=== PATIENT | female | born 1980 | race Hispanic/Latino ===

== ENCOUNTER 2017-06-27 15:44 | Emergency (ER) | payer SELFPAY ==
[2017-06-27 16:19] LABS: Bilirubin Negative (Negative); Blood, Urine Large (Negative); Clarity CLOUDY (Clear); Glucose, Urine (Dipstick) Negative (Negative); Leukocyte Negative (Negative); Nitrite Negative (Negative); Protein, Urine (Dipstick) Trace mg/dL (Neg-Trace); Specific Gravity, Urine 1.038 (1.002-1.036); pH, Urine 5.5 (5.0-9.0)
[2017-06-27 16:20] LABS: Bacteria/HPF None Seen HPF (None Seen); Hyaline Casts/LPF 7-10 HYALINE CAST LPF (0-3 Hyaline); Pathc Cast-AUWi Flag 2.03 (0-2.49); WBC/HPF 0-3 HPF (0-3)
[2017-06-27 16:37] LABS: BHCG - Serum POSITIVE (NEGATIVE); Pregs Control Background? CLEAR/WHITE (CLR/WHITE); Pregs Control Bar Appear? YES (CONTROL BAR)
[2017-06-27 16:39] LABS: #Eosinphils 0.1 thou/uL (0.0-0.7); #Lymphocytes 2.6 thou/uL (1.20-3.40); #Monocytes 0.5 thou/uL (0.11-0.59); #Neutrophils 8.2 thou/uL (1.40-6.50); %Basophils 0.3 % (0.0-1.0); %Eosinophils 1.2 % (0.0-10.0); %Lymphocytes 22.3 % (21.0-51.0); %Monocytes 4.6 % (0.0-10.0); %Neutrophils 71.6 % (42.0-75.0); Hemoglobin 12.1 g/dL (12.0-16.0); Mean Corpuscular HGB CONC 34.5 g/dL (32.0-36.0); Mean Corpuscular Hemoglobin 32.5 pg (27.0-31.0); Mean Corpuscular Volume 94.2 fl (81.0-99.0); Mean Platelet Volume 8.2 fL (7.4-10.4); Platelet Count 257 thou/uL (130-400); RBC Distribution Width 11.8 % (11.5-14.5); Red Blood Cell (RBC) Count 3.72 mill/uL (4.20-5.40); White Blood Cell (WBC) Count 11.5 thou/uL (4.8-10.8)
[2017-06-27] MEDS ORDERED: Acetaminophen/Codeine 30-300mg Tablet ONE (16:51)
[2017-06-27 16:56] LABS: ALT (SGPT) 17 U/L (8-55); AST (SGOT) 12 U/L (5-34); Albumin 3.9 g/dL (3.5-5.0); Alkaline Phosphatase 64 U/L (40-150); Anion Gap 12 mmol/L (10-20); BUN (Urea Nitrogen) 14 mg/dL (7.0-18.7); Bilirubin, Total 0.5 mg/dL (0.2-1.2); Calc. Creatinine Clearance 0 mL/min (70-130); Calcium 9.3 mg/dL (7.8-10.44); Carbon Dioxide 23 mmol/L (22-29); Chloride 105 mmol/L (98-107); Estimated GFR-MDRD 88; Globulin 3.1 g/dL (2.4-3.5); Glucose 92 mg/dL (70-105); Potassium 3.2 mmol/L (3.5-5.1); Sodium 137 mmol/L (136-145)
--- NOTE | 2017-06-27 17:49 | ULT ---
PELVIC ULTRASOUND: 06/27/17 HISTORY: Evaluate for ectopic . Pelvic pain. COMPARISON: None. TECHNIQUE: Transabdominal imaging of the pelvis is performed. Ovaries are interrogated with plascencia scale, color fl ow, and doppler imaging and spectral waveform analysis. FINDINGS: The uterus is identified measuring 11.1 x 6.3 x 7.6 cm. No myometrial masses. Within the endometrium, there is a gestational sac, yolk sac and pole. [place]-rump length is 1.99 cm, corresponding to a gestational age of 8 weeks, 4 days. There are heart tones with a rate of 175 to 178 beats per minute. No subchorionic hemorrhage. Right ovary measures 2.7 x 1.8 x 1.5 cm. Left ovary measures 2.3 x 2.2 x 2.0 cm. There is no free flu id. OVARIAN DOPPLER: Vascular flow to both ovaries. IMPRESSION: Single intrauterine gestation with heart tones. Gestational age by crown-rump length is 8 weeks , 4 days. POS: [facility]
[2017-06-27] MEDS ORDERED: Potassium Chloride 20 MEQ TAB ONE (18:00)
[2017-06-30 00:42] LABS: Chlamydia by PCR Not Detected (NotDetected); GC by PCR Not Detected (NotDetected)
== END 2017-06-27 18:44 | disposition home or self-care (01) ==
LOC: ERS 15:44
DX: O20.0 Threatened abortion (principal); O23.591 Infection of other part of genital tract in pregnancy, first trimester; N76.0 Acute vaginitis; O99.281 Endocrine, nutritional and metabolic diseases complicating pregnancy, first trimester; E87.6 Hypokalemia; Z3A.08 8 weeks gestation of pregnancy
CPT/HCPCS: 76856; 80053; 81003; 81015; 84702; 84703; 85025; 86900; 86901; 87086; 87480; 87491; 87510; 87591; 87660; 93976

== ENCOUNTER 2017-11-06 20:24 | Emergency (ER) | payer SELFPAY ==
[2017-11-06 21:36] LABS: Bilirubin Negative (Negative); Blood, Urine Small (Negative); Clarity CLOUDY (Clear); Glucose, Urine (Dipstick) Negative (Negative); Leukocyte Moderate (Negative); Nitrite Negative (Negative); Protein, Urine (Dipstick) Negative (Neg-Trace); Specific Gravity, Urine 1.013 (1.002-1.036); Urobilinogen 0.2 mg/dL (0.2-1.0)
[2017-11-06 21:38] LABS: Bacteria/HPF 1+ HPF (None Seen); Hyaline Casts/LPF 0-3 HYALINE CAST LPF (0-3 Hyaline); Pathc Cast-AUWi Flag 0.72 (0-2.49); WBC/HPF 21-50 HPF (0-3)
[2017-11-06 21:59] LABS: #Eosinphils 0.1 thou/uL (0.0-0.7); #Lymphocytes 2.4 thou/uL (1.20-3.40); #Monocytes 0.5 thou/uL (0.11-0.59); #Neutrophils 7.3 thou/uL (1.40-6.50); %Basophils 0.3 % (0.0-1.0); %Eosinophils 1.2 % (0.0-10.0); %Lymphocytes 23.3 % (21.0-51.0); %Monocytes 4.6 % (0.0-10.0); %Neutrophils 70.6 % (42.0-75.0); Hemoglobin 11.5 g/dL (12.0-16.0); Mean Corpuscular HGB CONC 35.2 g/dL (32.0-36.0); Mean Corpuscular Hemoglobin 33.8 pg (27.0-31.0); Mean Corpuscular Volume 96.1 fL (78.0-98.0); Mean Platelet Volume 8.6 fL (7.4-10.4); Platelet Count 247 thou/uL (130-400); RBC Distribution Width 12.2 % (11.5-14.5); White Blood Cell (WBC) Count 10.4 thou/uL (4.8-10.8)
[2017-11-06 22:20] LABS: ALT (SGPT) 16 U/L (8-55); AST (SGOT) 11 U/L (5-34); Albumin 3.1 g/dL (3.5-5.0); Alkaline Phosphatase 106 U/L (40-150); Anion Gap 10 mmol/L (10-20); BUN (Urea Nitrogen) 9 mg/dL (7.0-18.7); Bilirubin, Total 0.3 mg/dL (0.2-1.2); Calc. Creatinine Clearance 0 mL/min (70-130); Calcium 8.4 mg/dL (7.8-10.44); Carbon Dioxide 23 mmol/L (22-29); Chloride 106 mmol/L (98-107); Estimated GFR-MDRD Greater than 90; Globulin 3.3 g/dL (2.4-3.5); Glucose 97 mg/dL (70-105); Potassium 3.2 mmol/L (3.5-5.1); Protein, Total 6.4 g/dL (6.0-8.3); Sodium 136 mmol/L (136-145)
[2017-11-07 00:40] LABS: BHCG - Serum Negative (NEGATIVE); Pregs Control Background? CLEAR/WHITE (CLR/WHITE); Pregs Control Bar Appear? YES (CONTROL BAR)
[2017-11-07] MEDS ORDERED: Famotidine/PF 20 mg/2ml Vial ONE (02:18)
[2017-11-07] MEDS ORDERED: diphenhydrAMINE 50 MG/ML VIAL ONE (02:18)
[2017-11-07] MEDS ORDERED: Metoclopramide HCl 10 MG/2 ML VIAL ONE (02:18)
[2017-11-07] MEDS ORDERED: Nitrofurantoin Macrocrystal 50 MG CAP PO SCH (02:30)
--- NOTE | 2017-11-07 03:28 | PDOC.LDHP ---
Labor and Delivery H&P Chief complaint: other (weakness, shortness of breath) HPI: 37 y/o at 28w3d, patient of Dr. James, presented to ED for shortness of breath with cold sensation, and epigastric pain. She was evaluated in the ED for these complaints and I saw her while down there. No ctx, VB, LOF, or decreased FM. No other OB complaints. She was monitored in room 3. ROS neg for HEENT, cv, pulm, gi, gu, neuro, psych, skin, musculoskeletal or constitutional symptoms other than mentioned above. OB History Details: 3 prior LTCS Current complications: none Past Medical History: Depression Current medications: none Previous surgical history: low tranverse CS (x3) Allergies/Adverse Reactions: Allergies Allergy/AdvReac Type Severity Reaction Status Date / Time No Known Allergies Allergy Unverified 05/04/13 14:46 Social history: none - Physical Exam Vital signs reviewed and normal: yes General: NAD, resting Lungs: nonlabored breathing Abdomen: gravid Extremeties: no edema FHT: category 1 (130s, mod variability, + accels, no decels) [place] contractions every: None - Assessment 37 y/o at 28w3d with no OB complaints. Management of presenting complaints per ED physician. status reassuring with reactive NST. - Plan -: Cleared for d/c home from OB [facility]. Follow up with Dr. James as scheduled.
--- NOTE | 2017-11-07 12:34 | ULT ---
PRELIMINARY REPORT/[facility]/EMERGENTY AFTER-HOURS PROCEDURE US Abdomen Limited, Right Upper Quadrant CLINICAL HISTORY: 37 years old, female; Pain and signs and symptoms; Nausea; Abdominal pain; Localized; Right upper robin drant (ruq); TECHNIQUE: Real-time ultrasound of the right upper quadrant with image documentation. COMPARISON: No relevant prior studies available. FINDINGS: Limitations: Somewhat limited evaluation due to bowel gas. Liver: Mildly enlarged. No acute findings. No mass. No intrahepatic bile duct dilation. Gallbladder: No acute findings. No definite gallstones. Common bile duct: Unremarkable. Pancreas: Obscured by bowel gas. Right kidney: No acute findings. No stones. No solid mass. No hydronephrosis. IMPRESSION: No acute findings. Thank you for allowing us to participate in the care of your patient. Dictated and Authenticated by: Glenn Mejía MD 11/07/2017 2:18 AM Central Time ([place] & [place]) FINAL REPORT EMERGENCY AFTER HOURS STUDY ULTRASOUND ABDOMEN LIMITED: (RIGHT UPPER QUADRANT) DATE: 11/07/17. TIME: 1:37 a.m. HISTORY: A 37-year-old female with right upper quadrant abdominal pain, weakness, and nausea. FINDINGS: The gallbladder has normal wall thickness and has no evidence of gallstones or sludge. The hepatic e chogenicity is normal. The right kidney has normal echogenicity and has no hydronephrosis. The panc reas is obscured by shadowing from bowel gas. There is no biliary dilation. The common duct caliber is 5 mm. This report agrees with preliminary report by [facility]. IMPRESSION: 1) No pathology identified. 2) Pancreas not visualized. [email or web address] [] POS: [facility]
== END 2017-11-07 03:43 | disposition home or self-care (01) ==
LOC: ERS 20:24
DX: N39.0 Urinary tract infection, site not specified (principal); R10.13 Epigastric pain
CPT/HCPCS: 36415; 59025; 76705; 80053; 81003; 81015; 84703; 85025; 87077; 87086; 87186; 96365; 96375; J1200; J2765; S0028

== ENCOUNTER 2021-09-23 15:25 | Emergency (ER) | payer OTHER, SELFPAY ==
[~2021-09-23 15:25] MED LIST: Iopamidol-370 76% 500 ML 1 ML ONE
[2021-09-23] MEDS ORDERED: Ondansetron PF 4 MG/2 ML Vial ONE (15:39)
[2021-09-23] MEDS ORDERED: Morphine 4 MG/ML VIAL ONE (15:39)
[2021-09-23 15:57] LABS: #Eosinphils 0.1 thou/uL (0.0-0.7); #Lymphocytes 3.2 thou/uL (1.20-3.40); #Monocytes 0.6 thou/uL (0.11-0.59); #Neutrophils 6.6 thou/uL (1.40-6.50); %Basophils 0.4 % (0.0-1.0); %Eosinophils 1.2 % (0.0-10.0); %Lymphocytes 30.4 % (21.0-51.0); %Monocytes 5.7 % (0.0-10.0); %Neutrophils 62.3 % (42.0-75.0); Hemoglobin 12.5 g/dL (12.0-16.0); Mean Corpuscular HGB CONC 34.4 g/dL (32.0-36.0); Mean Corpuscular Hemoglobin 31.7 pg (27.0-31.0); Mean Corpuscular Volume 92.2 fL (78.0-98.0); Mean Platelet Volume 8.2 fL (7.4-10.4); Platelet Count 252 thou/uL (130-400); RBC Distribution Width 12.1 % (11.5-14.5); Red Blood Cell (RBC) Count 3.95 mill/uL (4.20-5.40); White Blood Cell (WBC) Count 10.6 thou/uL (4.8-10.8)
[2021-09-23 16:03] LABS: BHCG - Serum Negative (NEGATIVE); Pregs Control Background? CLEAR/WHITE (CLR/WHITE); Pregs Control Bar Appear? YES (CONTROL BAR)
[2021-09-23 16:37] LABS: ALT (SGPT) 24 U/L (8-55); AST (SGOT) 20 U/L (5-34); Albumin 3.9 g/dL (3.5-5.0); Alkaline Phosphatase 109 U/L (40-110); Anion Gap 15 mmol/L (10-20); BUN (Urea Nitrogen) 16 mg/dL (7.0-18.7); Bilirubin, Total 0.3 mg/dL (0.2-1.2); Calc. Creatinine Clearance 0 mL/min (70-130); Calcium 9.1 mg/dL (7.8-10.44); Carbon Dioxide 22 mmol/L (22-29); Chloride 107 mmol/L (98-107); Estimated GFR 86; Globulin 3.5 g/dL (2.4-3.5); Glucose 101 mg/dL (70-105); Potassium 3.7 mmol/L (3.5-5.1); Protein, Total 7.4 g/dL (6.0-8.3); Sodium 140 mmol/L (136-145)
[2021-09-23] MEDS ORDERED: Ketorolac Tromethamine 30 MG/ML VIAL ONE (16:58)
== END 2021-09-23 18:05 | disposition home or self-care (01) ==
LOC: ERS 15:25
DX: S09.90XA Unspecified injury of head, initial encounter (principal); S60.221A Contusion of right hand, initial encounter; S40.811A Abrasion of right upper arm, initial encounter; M54.9 Dorsalgia, unspecified; I10 Essential (primary) hypertension; E05.90 Thyrotoxicosis, unspecified without thyrotoxic crisis or storm; Z79.899 Other long term (current) drug therapy; V89.2XXA Person injured in unspecified motor-vehicle accident, traffic, initial encounter
CPT/HCPCS: 70450; 71045; 71260; 72125; 74177; 80053; 84703; 85025; 93005; 96374; 96375; J1885; J2270; J2405; Q9967

== ENCOUNTER 2022-10-25 19:56 | Emergency (ER) | payer SELFPAY ==
[2022-10-25 21:19] LABS: #Eosinphils 0.2 thou/uL (0.0-0.7); #Monocytes 0.6 thou/uL (0.11-0.59); #Neutrophils 6.5 thou/uL (1.40-6.50); %Basophils 0.2 % (0.0-1.0); %Eosinophils 1.9 % (0.0-10.0); %Lymphocytes 32.9 % (21.0-51.0); %Monocytes 5.6 % (0.0-10.0); %Neutrophils 59.1 % (42.0-75.0); Hematocrit 33.6 % (36.0-47.0); Hemoglobin 11.8 g/dL (12.0-16.0); Mean Corpuscular HGB CONC 35.1 g/dL (32.0-36.0); Mean Corpuscular Hemoglobin 32.2 pg (27.0-31.0); Mean Corpuscular Volume 91.6 fl (78.0-98.0); Mean Platelet Volume 10.9 fL (7.4-10.4); Platelet Count 270 10x3/uL (130-400); RBC Distribution Width 13.7 % (11.5-14.5); Red Blood Cell (RBC) Count 3.67 mill/uL (4.20-5.40); White Blood Cell (WBC) Count 11.1 10x3/uL (4.8-10.8)
[2022-10-25 21:45] LABS: ALT (SGPT) 22 U/L (8-55); AST (SGOT) 17 U/L (5-34); Albumin 4.1 g/dL (3.5-5.0); Alkaline Phosphatase 85 U/L (40-110); Anion Gap 13 mmol/L (10-20); BUN (Urea Nitrogen) 11 mg/dL (7.0-18.7); Bilirubin, Total 0.4 mg/dL (0.2-1.2); Calc. Creatinine Clearance 0 mL/min (70-130); Calcium 9.4 mg/dL (7.8-10.44); Carbon Dioxide 25 mmol/L (22-29); Chloride 106 mmol/L (98-107); Estimated GFR 78; Globulin 3.4 g/dL (2.4-3.5); Glucose 115 mg/dL (70-105); Potassium 3.2 mmol/L (3.5-5.1); Protein, Total 7.5 g/dL (6.0-8.3); Sodium 141 mmol/L (136-145)
[2022-10-25 22:36] LABS: SARS-CoV-2 NAA Rapid Test Not Detected (NotDetected)
[2022-10-25 23:25] LABS: Bacteria/HPF 1+ HPF (None Seen); Bilirubin Negative (Negative); Blood, Urine 2+ (Negative); CAUTI Indications for Culture Dysuria,urgency,freq; Calcium Oxalate Crystals Rare HPF (None Seen); Clarity Turbid (Clear); Glucose, Urine (Dipstick) Normal (Negative); Ketone, Urine Negative (Negative); Leukocyte Negative Leu/uL (Negative); Nitrite Negative (Negative); Protein, Urine (Dipstick) 50 mg/dL (Neg-Trace); RBC/HPF 21-50 HPF (0-3); Specific Gravity, Urine 1.033 (1.002-1.036); Urobilinogen 3 mg/dL (Less than 2); WBC/HPF 0-3 HPF (0-3)
[2022-10-25 23:27] LABS: Urine Culture Reflex No No
[2022-10-25] MEDS ORDERED: Cephalexin 250 MG CAP ONE (23:41)
== END 2022-10-26 00:48 | disposition home or self-care (01) ==
LOC: ERS 19:56
DX: N39.0 Urinary tract infection, site not specified (principal); E03.9 Hypothyroidism, unspecified; I10 Essential (primary) hypertension; Z20.822 Contact with and (suspected) exposure to COVID-19
CPT/HCPCS: 36415; 71045; 80053; 81001; 85025; 93005

== ENCOUNTER 2022-12-17 12:04 | Emergency (ER) | payer OTHER, SELFPAY ==
[2022-12-17] MEDS ORDERED: Ketorolac Tromethamine 30 MG/ML VIAL ONE (12:55)
[2022-12-17] MEDS ORDERED: Cyclobenzaprine 10 MG TAB ONE (14:51)
== END 2022-12-17 15:12 | disposition home or self-care (01) ==
LOC: ERS 12:04
DX: S13.4XXA Sprain of ligaments of cervical spine, initial encounter (principal); S83.92XA Sprain of unspecified site of left knee, initial encounter; E03.9 Hypothyroidism, unspecified; I10 Essential (primary) hypertension; V43.92XA Unspecified car occupant injured in collision with other type car in traffic accident, initial encounter; Y92.410 Unspecified street and highway as the place of occurrence of the external cause
CPT/HCPCS: 71045; 72125; 96372; J1885

== ENCOUNTER 2022-12-31 11:55 | Emergency (ER) | payer SELFPAY ==
[2022-12-31] MEDS ORDERED: diphenhydrAMINE 50 MG/ML VIAL ONE (13:29)
[2022-12-31] MEDS ORDERED: Ketorolac Tromethamine 30 MG/ML VIAL ONE ×2 (13:29→13:33)
[2022-12-31] MEDS ORDERED: Diazepam 5 MG TAB ONE (13:36)
[2022-12-31] MEDS ORDERED: Acetaminophen 500 MG TAB ONE (13:40)
[2022-12-31] MEDS ORDERED: Prochlorperazine 10 MG/2 ML VIAL ONE (13:42)
[2022-12-31] MEDS ORDERED: Dexamethasone 10 MG/ML VIAL ONE (13:50)
[2022-12-31 14:12] LABS: #Eosinphils 0.2 thou/uL (0.0-0.7); #Monocytes 0.4 thou/uL (0.11-0.59); #Neutrophils 7.1 thou/uL (1.40-6.50); %Basophils 0.2 % (0.0-1.0); %Eosinophils 1.8 % (0.0-10.0); %Lymphocytes 22.4 % (21.0-51.0); %Neutrophils 71.4 % (42.0-75.0); Hematocrit 39.1 % (36.0-47.0); Hemoglobin 13.1 g/dL (12.0-16.0); Mean Corpuscular HGB CONC 33.5 g/dL (32.0-36.0); Mean Corpuscular Hemoglobin 31.6 pg (27.0-31.0); Mean Corpuscular Volume 94.4 fl (78.0-98.0); Platelet Count 286 10x3/uL (130-400); RBC Distribution Width 12.2 % (11.5-14.5); Red Blood Cell (RBC) Count 4.14 mill/uL (4.20-5.40); White Blood Cell (WBC) Count 9.9 10x3/uL (4.8-10.8)
[2022-12-31 14:30] LABS: ALT (SGPT) 19 U/L (8-55); AST (SGOT) 15 U/L (5-34); Albumin 4.3 g/dL (3.5-5.0); Alkaline Phosphatase 95 U/L (40-110); Anion Gap 10 mmol/L (10-20); BUN (Urea Nitrogen) 11 mg/dL (7.0-18.7); Bilirubin, Total 0.2 mg/dL (0.2-1.2); Calc. Creatinine Clearance 0 mL/min (70-130); Calcium 9.1 mg/dL (7.8-10.44); Carbon Dioxide 27 mmol/L (22-29); Chloride 104 mmol/L (98-107); Estimated GFR 101; Glucose 107 mg/dL (70-105); Magnesium 2.1 mg/dL (1.6-2.6); Potassium 3.9 mmol/L (3.5-5.1); Protein, Total 7.3 g/dL (6.0-8.3); Sodium 137 mmol/L (136-145)
[2022-12-31 16:00] LABS: BHCG - Serum Negative (NEGATIVE); Pregs Control Background? CLEAR/WHITE (CLR/WHITE); Pregs Control Bar Appear? YES (CONTROL BAR)
[2022-12-31 17:03] LABS: Troponin I Less than 0.010 ng/mL (< 0.028)
== END 2022-12-31 17:36 | disposition home or self-care (01) ==
LOC: ERS 11:55
DX: R51.9 Headache, unspecified (principal); R07.9 Chest pain, unspecified; M54.2 Cervicalgia; I10 Essential (primary) hypertension; E78.5 Hyperlipidemia, unspecified; Z79.899 Other long term (current) drug therapy
CPT/HCPCS: 36415; 70450; 70498; 71045; 80053; 83735; 84484; 84703; 85025; 93005; 96374; 96375; J0780; J1100; J1200; J1885

== ENCOUNTER 2023-08-13 12:29 | Observation (INO) | payer SELFPAY ==
[2023-08-13] MEDS ORDERED: Meclizine HCl 25 MG TAB ONE (14:19)
[2023-08-13 15:22] LABS: #Basophils Less than 0.03 10x3/uL (0.0-0.2); %Basophils 0.2 % (0.0-1.0); %Lymphocytes 24.5 % (21.0-51.0); Hematocrit 38.8 % (36.0-47.0); Mean Corpuscular HGB CONC 33.5 g/dL (32.0-36.0); Mean Corpuscular Hemoglobin 32.9 pg (27.0-31.0); Mean Corpuscular Volume 98.2 fL (78.0-98.0); Mean Platelet Volume 10.9 fL (7.4-10.4); Platelet Count 278 10x3/uL (130-400); RBC Distribution Width 12.2 % (11.5-14.5); Red Blood Cell (RBC) Count 3.95 mill/uL (4.20-5.40)
[2023-08-13 15:35] LABS: BHCG - Serum Negative (NEGATIVE); Pregs Control Background? CLEAR/WHITE (CLR/WHITE); Pregs Control Bar Appear? YES (CONTROL BAR)
[2023-08-13 15:39] LABS: ALT (SGPT) 18 U/L (8-55); AST (SGOT) 14 U/L (5-34); Albumin 3.6 g/dL (3.5-5.0); Alkaline Phosphatase 84 U/L (40-110); Anion Gap 12 mmol/L (10-20); BUN (Urea Nitrogen) 13 mg/dL (7.0-18.7); Bilirubin, Total 0.7 mg/dL (0.2-1.2); Calc. Creatinine Clearance 0 mL/min (70-130); Calcium 8.9 mg/dL (7.8-10.44); Carbon Dioxide 23 mmol/L (22-29); Chloride 105 mmol/L (98-107); Estimated GFR 110; Globulin 3.4 g/dL (2.4-3.5); Glucose 88 mg/dL (70-105); Potassium 3.9 mmol/L (3.5-5.1); Sodium 136 mmol/L (136-145)
[2023-08-13] MEDS ORDERED: Ondansetron PF 4 MG/2 ML Vial IVP PRN (16:30)
[2023-08-13] MEDS ORDERED: Ondansetron ODT 4 MG TAB SL PRN (16:30)
[2023-08-13] MEDS ORDERED: Acetaminophen 325 MG TAB PO PRN (16:30)
[2023-08-13 16:53] LABS: Troponin I Less than 0.010 ng/mL (< 0.028)
[2023-08-13] MEDS ORDERED: Dexamethasone 10 MG/ML VIAL ONE (17:14)
[2023-08-13] MEDS ORDERED: Aspirin Chewable 81 MG TAB ONE (17:14)
[2023-08-13] MEDS ORDERED: hydrALAZINE 20 MG/ML VIAL SLOW IVP PRN (17:15)
[2023-08-13] MEDS ORDERED: Meclizine HCl 25 MG TAB PO PRN (17:48)
[2023-08-13 18:30] LABS: INR-International Normal Ratio 1.1
[2023-08-13 18:31] LABS: PTT 23.7 sec (22.9-36.1)
[2023-08-13 19:02] LABS: T4 8.04 ug/dL (4.87-11.72)
[2023-08-13] MEDS: Atorvastatin Calcium 40 MG TAB PO SCH (21:22)
[2023-08-13 22:09] VITALS: BMI 35.5
[2023-08-14 05:45] LABS: Cardiac Risk 3.6 (Less than 4.5)
[2023-08-14] MEDS: Enoxaparin 40 MG (0.4 mL) SYRINGE SC SCH (09:21)
[2023-08-14] MEDS: Aspirin 81 mg Enteric Coated Tablet PO SCH (09:21)
[2023-08-14 14:51] LABS: INR-International Normal Ratio 1.1; PTT 24.4 sec (22.9-36.1); Prothrombin Time 14.6 sec (12.0-14.7)
[2023-08-14 14:54] LABS: D-Dimer Test Less than 0.27 mcg/mL (0.27-0.43)
[2023-08-14 15:37] LABS: Protein C Activity 106 % (78-152)
[2023-08-14 17:24] VITALS: BP 116/60; TEMP 98.1
[2023-08-15 14:14] LABS: HEX PHOS LA Tube 1 41.2 SEC; HEX PHOS LA Tube 2 39.4 SEC; Hexagonal Phospholipid Neut 1.8 SEC (0-8.0)
[2023-08-16 13:11] LABS: Cardiolipin IgA Ab 8.6 APL-U/mL (<14 Negative); Cardiolipin IgG Ab 1.3 GPL-U/mL (<10 Negative); Cardiolipin IgM Ab 1.6 MPL-U/mL (<10 Negative); EliA APS New Method **** NEW METHOD ****
== END 2023-08-14 18:49 | disposition home or self-care (01) ==
LOC: ERS 12:29 → 2SE 16:34
PROVIDERS: ADMIT Internal Medicine; ATTEND Internal Medicine
DX: R42 Dizziness and giddiness (principal); R20.0 Anesthesia of skin; R29.90 Unspecified symptoms and signs involving the nervous system; E03.9 Hypothyroidism, unspecified; I10 Essential (primary) hypertension; Z79.899 Other long term (current) drug therapy; Z79.82 Long term (current) use of aspirin
CPT/HCPCS: 36415; 70450; 70551; 71045; 80053; 80061; 83090; 84436; 84443; 84481; 84484; 84703; 85025; 85300; 85303; 85305; 85307; 85598; 85610; 85730; 86147; 93005; 96372; 96374; G0378; J1100; J1650

== ENCOUNTER 2024-02-08 23:24 | Emergency (ER) | payer SELFPAY ==
[2024-02-09] MEDS ORDERED: HYDROcodone/Acetaminophen 5/325 mg Tablet ONE ×2 (00:47→05:03)
[2024-02-09 01:55] LABS: BHCG - Serum Negative (NEGATIVE); Pregs Control Background? CLEAR/WHITE (CLR/WHITE); Pregs Control Bar Appear? YES (CONTROL BAR)
== END 2024-02-09 05:07 | disposition home or self-care (01) ==
LOC: ERS 23:24
DX: S09.90XA Unspecified injury of head, initial encounter (principal); M54.2 Cervicalgia; M79.602 Pain in left arm; I10 Essential (primary) hypertension; W18.09XA Striking against other object with subsequent fall, initial encounter; Y93.89 Activity, other specified
CPT/HCPCS: 36415; 70450; 71250; 72125; 84703